=== PATIENT | female | born 1970 | race Caucasian/White ===

== ENCOUNTER 2019-03-16 10:54 | Outpatient (CLI) | payer OTHER ==
[~2019-03-16 10:54] MED LIST: ALPR0.25 PO; DIPH25TA65 PO; DULO30CA2; DULO60CA7 PO
== END 2019-03-16 23:59 | disposition home or self-care (01) ==
LOC: CFH 10:54
PROVIDERS: ATTEND Nurse Practitioner Family
DX: Z12.31 Encounter for screening mammogram for malignant neoplasm of breast (principal); N63.20 Unspecified lump in the left breast, unspecified quadrant
CPT/HCPCS: 77063; 77067